=== PATIENT | female | born 2000 | race Caucasian/White ===

== ENCOUNTER → 2020-03-26 13:43 | Outpatient (BNVA) | payer BC, OTHER, SELFPAY | PROVIDERS: PCP Internal Medicine; Visit Provider Obstetrics & Gynecology | DX: Z30.46 Encounter for surveillance of implantable subdermal contraceptive (principal); Z87.891 Personal history of nicotine dependence | CPT/HCPCS: 11982; 81025 ==

== ENCOUNTER 2020-08-02 10:43 | Emergency (ER) | payer BC, OTHER, SELFPAY ==
--- NOTE | ~2020-08-02 | US_ITS ---
EXAMINATION: US OBSTETRICAL ULTRASOUND CLINICAL INFORMATION: Pelvic and back pain. Positive . Age 19. COMPARISON: None. LMP: Unknown. TECHNIQUE: Ultrasound of the maternal pelvis is performed using transabdominal and transvaginal transducers. Transvaginal imaging is performed due to inadequate visualization transabdominally. M-mode Doppler is also performed. FINDINGS: There is a single intrauterine gestational sac with visible yolk sac, embryo/fetus, and cardiac activity. There is no significant subchorionic hemorrhage or hematoma. HR: 109 beats per minute. CRL (crown rump length): 0.4 cm (6 weeks 1 day +/- 4 days). LOTUS (estimated date of delivery): 03/27/2021 +/- 4 days. MATERNAL ADNEXA: The right maternal ovary measures 2.6 x 1.8 x 2.3 cm. The left maternal ovary measures 2.5 x 2.1 x 2.5 cm. There is small left paraovarian cyst measuring 1.2 cm. No peripheral or internal color flow. No significant adnexal mass. No pelvic ascites. US/US OB transvaginal IMPRESSION: 1. Single intrauterine gestation with ultrasound gestational age of 6 weeks 1 day +/- 4 days. 2. Estimated date of delivery is 03/27/2021 +/- 4 days. 3. Small left paraovarian cyst 1.2 cm. No significant adnexal mass or pelvic ascites.
--- NOTE | ~2020-08-02 | US_ITS ---
EXAMINATION: US OBSTETRICAL ULTRASOUND CLINICAL INFORMATION: Pelvic and back pain. Positive . Age 19. COMPARISON: None. LMP: Unknown. TECHNIQUE: Ultrasound of the maternal pelvis is performed using transabdominal and transvaginal transducers. Transvaginal imaging is performed due to inadequate visualization transabdominally. M-mode Doppler is also performed. FINDINGS: There is a single intrauterine gestational sac with visible yolk sac, embryo/fetus, and cardiac activity. There is no significant subchorionic hemorrhage or hematoma. HR: 109 beats per minute. CRL (crown rump length): 0.4 cm (6 weeks 1 day +/- 4 days). LOTUS (estimated date of delivery): 03/27/2021 +/- 4 days. MATERNAL ADNEXA: The right maternal ovary measures 2.6 x 1.8 x 2.3 cm. The left maternal ovary measures 2.5 x 2.1 x 2.5 cm. There is small left paraovarian cyst measuring 1.2 cm. No peripheral or internal color flow. No significant adnexal mass. No pelvic ascites. US/US OB <= 14 weeks fetus IMPRESSION: 1. Single intrauterine gestation with ultrasound gestational age of 6 weeks 1 day +/- 4 days. 2. Estimated date of delivery is 03/27/2021 +/- 4 days. 3. Small left paraovarian cyst 1.2 cm. No significant adnexal mass or pelvic ascites.
[2020-08-02 11:36] VITALS: BP 133/73; PULSE 100; RESP 18; TEMP 36.1; O2SAT 98; BMI 42.3
--- NOTE | 2020-08-02 11:38 | ED_ITS ---
HPI - Female Genitourinary General Chief complaint: Urogenital-Female Stated complaint: ?uti Time Seen by Provider: 08/02/20 10:46 Source: patient Mode of arrival: ambulatory Limitations: no limitations History of Present Illness HPI Narrative: 19 yo female coming from with complaints of waking with bilateral lower back pain, nausea/vomiting x3, hematuria, urinary frequency/dysuria, suprapubic discomfort. No fevers, chills, vaginal discharge, rashes or lesion. Last menstrual cycle 6 weeks ago. . Is not currently on contraception but does use condoms. Denies vaginal bleeding. Related Data Home Medications Medication Instructions Recorded Confirmed benzoyl peroxide 10 % topical gel 1 appl TOPICAL BID 08/02/20 clindamycin phosphate 1 % topical 1 appl TOPICAL BID 08/02/20 gel Previous Rx's Medication Instructions Recorded norgestimate 0.25 mg-ethinyl 1 tab PO DAILY #84 tab 03/26/20 estradiol 35 mcg tablet nitrofurantoin 100 mg PO Q12H 7 Days #14 cap 06/06/20 monohydrate/macrocrystals 100 mg capsule cefpodoxime 100 mg PO BID #14 tab 08/02/20 prenat.vits,susan,[id number] 1 tab PO BEDTIME #30 tab 08/02/20 Allergies Allergy/AdvReac Type Severity Reaction Status Date / Time seasonal Allergy Intermediate Itchy Eyes Uncoded 08/02/20 09:21 Review of Systems Review of Systems: Yes all other systems are reviewed and are negative Constitutional: Constitutional: Reports no additional constitutional complaints, Denies body ache(s), Denies chills, Denies fever(s), Denies headache(s) and Denies weakness Eyes: Eyes: Reports no additional eye complaints and Denies change in vision ENT: Reports system reviewed and no additional complaints, except as documented, Denies dizziness, Denies headache(s), Denies nasal congestion, Denies nasal discharge and Denies neck pain Cardiovascular: Cardiovascular: Reports no additional cardiovascular complaints, Denies chest pain, Denies leg edema and Denies dyspnea Respiratory: Respiratory: Reports no additional respiratory complaints, Denies cough and Denies dyspnea Gastrointestinal: Gastrointestinal: Reports no additional gastrointestinal complaints, Denies abdominal pain, Denies diarrhea, Reports nausea and Reports vomiting Genitourinary: Genitourinary: Reports no additional female genitourinary complaints, Reports hematuria, Reports dysuria, Reports flank pain, Denies urinary incontinence, Denies urinary hesitancy, Denies urinary urgency, Denies vaginal discharge, Denies vaginal dryness, Denies vaginal odor and Denies vaginal pruritus Musculoskeletal: Musculoskeletal: Reports no additional musculoskeletal complaints, Reports back pain, Denies arthralgias, Denies joint swelling, Denies neck pain, Denies numbness and Denies tingling Integumentary/Breasts: Skin/Breast: Reports system reviewed and no additional complaints, except as docu and Denies rash Neurologic: Reports system reviewed and no additional complaints, except as documented, Denies Abnormal speech present, Denies dizziness, Denies headache(s), Denies numbness, Denies tingling and Denies weakness PMFSH Past Medical History Attestation statement: The following information was validated with the patient. Source: old records reviewed and nursing notes reviewed Surgical History Hx of section Family History Family History Maternal Grandmother HTN (hypertension) Maternal Grandfather Diabetes Maternal Grandfather Diabetes Social History Social History Alcohol intake: current Smoking Status: Former smoker Advance Directives: No Advance Directives Information Provided: No Physical Exam Vital Signs: Vital Signs: Last Vital Signs Temp 97.0 F 08/02/20 11:36 Pulse 100 08/02/20 11:36 Resp 18 08/02/20 11:36 BP 133/73 08/02/20 11:36 Pulse Ox 98 08/02/20 11:36 Body Mass Index 42.3 Const: General: cooperative, healthy appearing, comfortable and no acute distress Orientation/consciousness: patient oriented x3 Limitations: no limitations HENMT: Head: Yes normal to inspection Ears: hearing grossly normal bilaterally General nose exam: Normal external nose present Face and sinus: Yes normal facial exam Mouth: Normal oral and palatal mucosa present Throat: Yes posterior oropharynx normal Eyes: General: appearance normal, both eyes and all related structures Pupils: Equal, round and reactive pupils present Neck: Neck: Yes normal visual inspection Chest: Chest palpation & inspection: normal inspection of the chest Resp: Effort & Inspection: normal respiratory effort Auscultation: clear to auscultation bilaterally Cardio: Rate: regular rate Rhythm: regular rhythm Peripheral pulses: Peripheral pulses 2+ throughout GI: Other: Mild suprapubic discomfort. No rebound or guarding. Inspection: Yes normal to inspection Palpation (GI): Soft to palpation and nontender Auscultation: normal bowel sounds : General: Yes no CVA tenderness Back/Spine/Pelvis: Other: No CVA tenderness. There is reports of lower lumbar soft tissue tenderness with no midline tenderness, step-offs or deformities. Back: no CVA tenderness Thoracic/Lumbar Spine: thoracic and lumbar spine normal to inspection Skin: General skin exam: no rashes or lesions noted Neuro: General: patient oriented x3, no focal motor deficits and normal sensation to monofilament Cranial nerves: Yes Equal, round and reactive pupils present Cognition (Neuro): normal cognition Speech: No Abnormal speech present Gait exam (Neuro): Normal gait present Motor exam (neuro): 5/5 motor strength present throughout Extrem: General: Yes normal to inspection Course Course Course Narrative: 19-year-old female here with complaints of lower back pain, hematuria, dysuria, frequency, nausea, vomiting times 24 hours. Patient also she did have a UTI 1 month ago and completed a course of antibiotics but it has never had improvement of symptoms. Patient's last menstrual period was 6 weeks ago and she is sexually active but tells me she uses condoms all the time. No fevers, chills. The abdomen is soft with some mild tenderness over the suprapubic area. There is no CVA tenderness on exam. 1230-UA shows 3+ blood with UTI. On exam the urine is not grossly bloody. No CVAT on exam so low concern for pyelo. Urine is positive. Will need labs include a beta quant, Rh and ultrasound. 1600-Quant sufficient. US shows 1. Single intrauterine gestation with ultrasound gestational age of 6 weeks 1 day +/- 4 days. 2. Estimated date of delivery is 03/27/2021 +/- 4 days. 3. Small left paraovarian cyst 1.2 cm. No significant adnexal mass or pelvic ascites. Pelvic exam shows NO vaginal bleeding. STI testing sent although patient tells m she is not concerned. Will discharge home with precautions, antibiotic treatment for cystitis. Reviewed worrisome signs/symptoms with patient and when to return to ED. Comfortable with discharge home. MDM - Female Genitourinary Medical Records Attestation: I reviewed the patient's medical records. Lab Data Attestation: I reviewed the patient's lab results. Result diagrams: 08/02/20 13:20 08/02/20 13:21 Labs: Lab Results 08/02/20 08/02/20 08/02/20 Range/Units 12:03 12:03 13:20 WBC 14.9 H (4.8-10.8) X10*3/uL RBC 5.12 (4.20-5.50) X10*6/uL Hgb 11.8 L (12.0-16.0) g/dl Hct 37.6 (37-47) % MCV 73.4 L (80-98) fL MCH 23.0 L (27.0-33.0) pg MCHC 31.4 (31.0-35.0) g/dl RDW 16.0 (11.0-16.0) % Plt Count 432 H (160-400) X10*3/uL MPV 9.2 L (9.4-12.3) fL Immature Gran % (Auto) 0.4 (0.0-0.4) % Neut % (Auto) 76.4 H (45-73) % Lymph % (Auto) 16.4 L (20-40) % [place] % (Auto) 6.3 (2-11) % Eos % (Auto) 0.3 (0-4) % Baso % (Auto) 0.2 (0-2) % Lymph # (Auto) 2.5 (1.2-4.9) X10*3/uL [place] # (Auto) 0.9 (0.1-1.2) X10*3/uL Eos # (Auto) 0.0 (0.0-0.4) X10*3/uL Baso # (Auto) 0.0 (0.0-0.2) X10*3/uL Abs Immat Gran (auto) 0.06 H (0.00-0.03) X10*3/uL Absolute Neuts (auto) 11.4 H (2.0-8.3) X10*3/uL Absolute Nucleated RBC 0.000 (0.0-0.012) X10*3/uL Nucleated RBC % (auto) 0.0 (0.0-0.2) /100WBC PT (10.8-13.0) SEC INR (0.9-1.1) Sodium (135-145) mmol/L Potassium (3.3-5.1) mmol/L Chloride (96-108) mmol/L Carbon Dioxide (22-29) mmol/L Anion Gap (12-20) BUN (9-16) mg/dL Creatinine (0.5-1.4) mg/dL Estim Creat Clear Calc Estimated GFR Random Glucose (60-115) mg/dL Calcium (8.4-10.2) mg/dL Beta HCG, Quant mIU/mL Urine Color YELLOW Urine Appearance HAZY Urine pH 6.0 (5.0-8.0) Ur Specific [place] >= 1.030 H (1.005-1.025) Urine Protein 1+ H (NEG-TRACE) MG/DL Urine Glucose (UA) NEG (NEG) MG/DL Urine Ketones 15 (NEG) MG/DL Urine Blood 3+ H (NEG) Urine Nitrite NEG (NEG) Ur Leukocyte Esterase 1+ H (NEG) Urine RBC 76-150 H (0) /HPF Urine WBC 76-150 H (0-4) /HPF Ur Squamous Epith Cells TRACE /LPF Urine Bacteria 1+ /LPF Urine Yeast 2+ /HPF Urine Test POSITIVE H (NEGATIVE) Blood Type 08/02/20 08/02/20 08/02/20 Range/Units 13:20 13:20 13:21 WBC (4.8-10.8) X10*3/uL RBC (4.20-5.50) X10*6/uL Hgb (12.0-16.0) g/dl Hct (37-47) % MCV (80-98) fL MCH (27.0-33.0) pg MCHC (31.0-35.0) g/dl RDW (11.0-16.0) % Plt Count (160-400) X10*3/uL MPV (9.4-12.3) fL Immature Gran % (Auto) (0.0-0.4) % Neut % (Auto) (45-73) % Lymph % (Auto) (20-40) % [place] % (Auto) (2-11) % Eos % (Auto) (0-4) % Baso % (Auto) (0-2) % Lymph # (Auto) (1.2-4.9) X10*3/uL [place] # (Auto) (0.1-1.2) X10*3/uL Eos # (Auto) (0.0-0.4) X10*3/uL Baso # (Auto) (0.0-0.2) X10*3/uL Abs Immat Gran (auto) (0.00-0.03) X10*3/uL Absolute Neuts (auto) (2.0-8.3) X10*3/uL Absolute Nucleated RBC (0.0-0.012) X10*3/uL Nucleated RBC % (auto) (0.0-0.2) /100WBC PT 13.5 H (10.8-13.0) SEC INR 1.1 (0.9-1.1) Sodium 138 (135-145) mmol/L Potassium 4.0 (3.3-5.1) mmol/L Chloride 105 (96-108) mmol/L Carbon Dioxide 22 (22-29) mmol/L Anion Gap 15 (12-20) BUN 6 L (9-16) mg/dL Creatinine 0.55 (0.5-1.4) mg/dL Estim Creat Clear Calc 170.3 Estimated GFR > 60 Random Glucose 81 (60-115) mg/dL Calcium 9.3 (8.4-10.2) mg/dL Beta HCG, Quant 65682 mIU/mL Urine Color Urine Appearance Urine pH (5.0-8.0) Ur Specific [place] (1.005-1.025) Urine Protein (NEG-TRACE) MG/DL Urine Glucose (UA) (NEG) MG/DL Urine Ketones (NEG) MG/DL Urine Blood (NEG) Urine Nitrite (NEG) Ur Leukocyte Esterase (NEG) Urine RBC (0) /HPF Urine WBC (0-4) /HPF Ur Squamous Epith Cells /LPF Urine Bacteria /LPF Urine Yeast /HPF Urine Test (NEGATIVE) Blood Type A Positive Imaging Data Pelvic US: Attestation: I personally reviewed and interpreted this imaging study as follows: Radiologist's impression: IMPRESSION: 1. Single intrauterine gestation with ultrasound gestational age of 6 weeks 1 day +/- 4 days. 2. Estimated date of delivery is 03/27/2021 +/- 4 days. 3. Small left paraovarian cyst 1.2 cm. No significant adnexal mass or pelvic ascites. Discharge Plan Discharge Clinical Impression: Urinary tract infection Qualifiers: Urinary tract infection type: acute cystitis Hematuria presence: with hematuria Qualified Code(s): N30.01 - Acute cystitis with hematuria Qualifiers: Weeks of gestation: less than 8 weeks Qualified Code(s): Z3A.01 - Less than 8 weeks gestation of Patient Disposition: Home, Self-Care Instructions: Urinary Tract Infection in (ED), First Trimester (ED) Additional Instructions: Increase fluids, rest tylenol only for pain Prescriptions: New cefpodoxime 100 mg tablet 100 mg PO BID Qty: 14 RF: 0 prenat.vits,susan,uid-jems-ysrhi Tablet 1 tab PO BEDTIME Qty: 30 RF: 0 No Action nitrofurantoin monohyd/m-cryst [Macrobid] 100 mg capsule 100 mg PO Q12H 7 Days Qty: 14 RF: 0 benzoyl peroxide 10 % gel 1 appl topical BID RF: 0 clindamycin phosphate 1 % gel 1 appl topical BID RF: 0 norgestimate-ethinyl estradiol [Sprintec (28)] 0.25-35 mg-mcg tablet 1 tab PO DAILY Qty: 84 RF: 3 Referrals: Matthew Nice MD [Physician] - 2 days Interventions: ED Discharge Assessment Last Done: 08/02/20 16:11 Discharge Date/Time: 08/02/20 16:11
[2020-08-02 12:19] LABS: UPreg QC Valid YES; Urine Pregnancy POSITIVE (NEGATIVE)
[2020-08-02 12:22] LABS: Glucose Urine UA NEG (NEG); Leukocyte Esterase Urine 1+ (NEG); Nitrite Urine NEG (NEG); Specific Gravity - Urine >= 1.030 (1.005-1.025); UACC Culture Trigger YES; Urine Blood 3+ (NEG); Urine Ketones 15 MG/DL (NEG); Urine Protein 1+ MG/DL (NEG-TRACE)
[2020-08-02 12:26] LABS: Appearance Urine HAZY; Color Urine YELLOW
[2020-08-02 13:02] LABS: Bacteria Urine 1+ /LPF; Squamous Epithelial Cell Urine TRACE /LPF
[2020-08-02 13:31] LABS: MANUAL DIFF FLAG NO
[2020-08-02 13:35] LABS: Basophils Percent Auto 0.2 % (0-2); Eosinophils Percent Auto 0.3 % (0-4); Hematocrit 37.6 % (37-47); Hemoglobin 11.8 g/dl (12.0-16.0); Imm Gran Abs Auto 0.06 X10*3/uL (0.00-0.03); Imm Gran Pct Auto 0.4 % (0.0-0.4); Lymphocytes Absolute Auto 2.5 X10*3/uL (1.2-4.9); Lymphocytes Percent Auto 16.4 % (20-40); Mean Corpuscular HGB Conc 31.4 g/dl (31.0-35.0); Mean Corpuscular Volume 73.4 fL (80-98); Mean Platelet Volume 9.2 fL (9.4-12.3); Monocytes Absolute Auto 0.9 X10*3/uL (0.1-1.2); Monocytes Percent Auto 6.3 % (2-11); Neutrophils Absolute Auto 11.4 X10*3/uL (2.0-8.3); Neutrophils Percent Auto 76.4 % (45-73); Platelet Count 432 X10*3/uL (160-400); Red Blood Count 5.12 X10*6/uL (4.20-5.50); White Blood Count 14.9 X10*3/uL (4.8-10.8)
[2020-08-02 13:41] LABS: INTERNATIONAL NORM RATIO 1.1 (0.9-1.1); Prothrombin Time 13.5 SEC (10.8-13.0)
[2020-08-02 13:55] LABS: Anion Gap 15 (12-20); Blood Urea Nitrogen 6 mg/dL (9-16); Calcium 9.3 mg/dL (8.4-10.2); Carbon Dioxide 22 mmol/L (22-29); Chloride 105 mmol/L (96-108); Creatinine Clr Calc Pharmacy 170.3; Estimated Glomerular Filt Rate > 60; Glucose Random 81 mg/dL (60-115); Sodium 138 mmol/L (135-145)
[2020-08-02 14:31] LABS: HCG Quantitative 16040 mIU/mL
--- NOTE | 2020-08-02 16:03 | PC.NURSE ---
ASSISTED RISK CONTROL DIRECTOR WITH PELVIC EXAM. PT TOLERATED PROCEDURE WELL.
[2020-08-03 06:32] LABS: CT PCR NOT DETECTED (Not Detect.); NG PCR NOT DETECTED (Not Detect.)
[2020-08-03 08:51] LABS: BV Int Neg Control Negative (Negative); BV Int Pos Control Positive (Positive)
== END 2020-08-02 16:11 | disposition home or self-care (01) ==
PROVIDERS: Nurse Practitioner Family; Emergency Provider Emergency Medicine; PCP Internal Medicine
DX: O23.11 Infections of bladder in pregnancy, first trimester (principal); N30.01 Acute cystitis with hematuria; O34.81 Maternal care for other abnormalities of pelvic organs, first trimester; N83.202 Unspecified ovarian cyst, left side; Z3A.01 Less than 8 weeks gestation of pregnancy
CPT/HCPCS: 36415; 76801; 76817; 80048; 81001; 81003; 81025; 84702; 85025; 85610; 86900; 86901; 87086; 87480; 87491; 87510; 87591; 87660; 99283; 99284

== ENCOUNTER → 2020-08-15 14:41 | Outpatient (BNVA) | payer BC, OTHER, SELFPAY | PROVIDERS: PCP Internal Medicine; Visit Provider Advanced Practice Midwife | DX: Z34.90 Encounter for supervision of normal pregnancy, unspecified, unspecified trimester (principal) | CPT/HCPCS: 81025; 99212 ==

== ENCOUNTER 2020-08-30 13:59 | Outpatient (REF) | payer BC, SELFPAY ==
[2020-08-30 18:16] LABS: Hematocrit 34.3 % (37-47); Hemoglobin 10.8 g/dl (12.0-16.0); Mean Corpuscular HGB Conc 31.5 g/dl (31.0-35.0); Mean Corpuscular Hemoglobin 23.4 pg (27.0-33.0); Mean Corpuscular Volume 74.4 fL (80-98); Mean Platelet Volume 9.6 fL (9.4-12.3); Platelet Count 387 X10*3/uL (160-400); Red Blood Count 4.61 X10*6/uL (4.20-5.50); Red Cell Distribution Width 15.3 % (11.0-16.0); White Blood Count 8.9 X10*3/uL (4.8-10.8)
[2020-08-30 18:17] LABS: Glucose 1 Hour PP 50gm Dose 107 mg/dL (60-140)
[2020-08-30 18:28] LABS: Amphetamine Screen Urine Not Detected (Not Detect); Barbiturates, Urine Not Detected (Not Detect); Benzodiazepines Screen Urine Not Detected (Not Detect); Cannabinoid Screen Urine Not Detected (Not Detect); Cocaine Screen Urine Not Detected (Not Detect); Opiate Screen Urine Not Detected (Not Detect); Phencyclidine Screen Urine Not Detected (Not Detect)
[2020-08-31 04:20] LABS: Syphilis Screen Nonreactive (Nonreactive)
[2020-08-31 04:23] LABS: HBsAGNum1 0.35 S/CO (0.00-0.99); Hepatitis B Surface Antigen Negative (Negative); ~HepC Num1 0.05 S/CO (0.00-0.79); ~Hepatitis C Antibody Nonreactive (Nonreactive)
[2020-08-31 04:27] LABS: HIV AB/AG Nonreactive (Nonreactive); HIV Num 1 0.07 S/CO (0.00-0.99)
[2020-08-31 13:25] LABS: Rubella IgG Antibody 2.06 Index; Varicella IgG Antibody <135.00 index
[2020-08-31 14:37] LABS: Hematocrit 34.2 % (35.0-45.0); Hemoglobin 10.9 g/dL (11.7-15.5); MCH 23.9 pg (27.0-33.0); RBC 4.56 Million/uL (3.80-5.10); RDW 14.7 % (11.0-15.0)
== END 2020-08-30 14:00 | disposition home or self-care (01) ==
LOC: HO.LAB 13:59
PROVIDERS: Absent Provider Obstetrics & Gynecology; PCP Internal Medicine; Visit Provider Advanced Practice Midwife
DX: O99.211 Obesity complicating pregnancy, first trimester (principal); O26.891 Other specified pregnancy related conditions, first trimester; G43.909 Migraine, unspecified, not intractable, without status migrainosus; E66.9 Obesity, unspecified; Z3A.10 10 weeks gestation of pregnancy; Z79.899 Other long term (current) drug therapy
CPT/HCPCS: 80307; 83020; 85014; 85018; 85027; 85041; 86762; 86780; 86787; 86803; 86850; 86900; 86901; 87086; 87340; 87389; 99212

== ENCOUNTER 2020-09-07 14:11 | Outpatient (REF) | payer OTHER, SELFPAY ==
--- NOTE | ~2020-09-07 | US_ITS ---
EXAMINATION: OBSTETRICAL ULTRASOUND, FIRST TRIMESTER HISTORY: 19-year-old at 11.2 weeks of gestation NT screening COMPARISON: 08/02/2020 TECHNIQUE: Real time transabdominal imaging with color and M-mode Doppler. FINDINGS: A single, live IUP CRL of 51.6 mm c/w 11.6wks is noted. Heart Rate: 156 beats per minute. Normal yolk sac seen. NT was 0.61.mm. NB Present The embryo appears sonographically wnl for this GA. Both maternal ovaries are seen and appear normal. GESTATIONAL AGE: 1. Established GA: 11.2 wks 2. GA from [facility]: 11.6 wks ESTIMATED DATE OF DELIVERY: 1. Established LOTUS: 03/27/2021 2. LOTUS from [facility]: 03/23/2021 US/US OB 1T nuc measure IMPRESSION: 1. A single live IUP 2. Size equals dates 3. NT of 0.6 mm MFM Consultation: I reviewed the ultrasound findings along with significance of NT measurement. The NT of less than 3mm is generally reassuring. However, the sensitivity for T21 detection is only 60%. I reviewed the availability of serum aneuploidy screening which includes cell-free DNA and placental protein based tests. I discussed the sensitivity, false-positive rate, and other limitations associated with each test. I also reviewed the availability of invasive diagnostic tests that are associated small but definite risk of miscarriage. We also reviewed the differences between screening tests and diagnostic tests. After our discussion, she opted for the First trimester screening that is based on cell-free DNA or non-invasive testing (NIPT). The result will be faxed to your office in approximately 7 days. A follow up at 18 weeks for survey has been scheduled. Thank you very much for this referral. Total time 20 minutes. The time spent was devoted to counseling the patient about the disease and diagnosis, coordinating care including reviewing her records, pertinent lab data and studies, as well as discussing diagnostic evaluation and workup, plan therapeutic interventions and future disposition of care. This includes any additional research needed to obtain further information in formulating the plan of care of this patient. This note was generated with a voice recognition program. Please excuse any errors which may have been overlooked during my review of this note. Sometimes these errors may affect the content or meaning of a given sentence.
== END 2020-09-07 14:12 | disposition home or self-care (01) ==
LOC: HO.US 14:11
PROVIDERS: PCP Internal Medicine; Visit Provider Obstetrics & Gynecology
DX: Z36.82 Encounter for antenatal screening for nuchal translucency (principal)
CPT/HCPCS: 76813

== ENCOUNTER 2020-09-12 14:46 | Outpatient (REF) | payer BC, OTHER, SELFPAY ==
[2020-09-13 06:42] LABS: CT PCR NOT DETECTED (Not Detect.); NG PCR NOT DETECTED (Not Detect.)
[2020-09-13 08:39] LABS: BV Int Neg Control Negative (Negative); BV Int Pos Control Positive (Positive)
== END 2020-09-12 14:47 | disposition home or self-care (01) ==
LOC: HO.LAB 14:46
PROVIDERS: PCP Internal Medicine; Visit Provider Obstetrics & Gynecology
DX: O21.9 Vomiting of pregnancy, unspecified (principal); Z3A.12 12 weeks gestation of pregnancy
CPT/HCPCS: 87480; 87491; 87510; 87591; 87660; 88142; 99212

== ENCOUNTER → 2020-10-10 14:51 | Outpatient (BNVA) | payer BC, OTHER, SELFPAY | PROVIDERS: PCP Internal Medicine; Visit Provider Advanced Practice Midwife | DX: Z34.91 Encounter for supervision of normal pregnancy, unspecified, first trimester (principal); Z3A.16 16 weeks gestation of pregnancy | CPT/HCPCS: 81003; 99212 ==

== ENCOUNTER 2020-10-26 09:09 | Outpatient (REF) | payer BC, OTHER, SELFPAY ==
--- NOTE | ~2020-10-26 | US_ITS ---
EXAMINATION: US OBSTETRICAL CLINICAL INFORMATION: 19-year-old at the 18.2 weeks of gestation Suspected anomaly COMPARISON: 09/07/2020 TECHNIQUE: Real-time transabdominal ultrasound was performed using C1-5 megahertz transducer. FINDINGS: A single, active, fetus is seen in vertex presentation. The placenta is posterior without previa, and the amniotic fluid volume is wnl. MEASUREMENTS: 1. Biparietal Diameter: 4.2 cm; 18.5 wks 2. Occipital Frontal Diameter: 5.5 cm 3. Head Circumference: 15.6 cm; 18.4 wks 4. Abdominal Circumference: 12.8 cm; 18.3 wks 5. Femur Length: 2.7 cm; 18.1 wks 6. Humerus Length: 2.6 cm; 18.1 wks 7. Tibia Length: 2.3 cm; 18.3 wks 8. Ulna Length: 2.4 cm; 18.3 wks 9. Lateral ventricle: 0.5 cm 10. Cerebellum: 1.98 cm; 20.2 wks 11. Cisterna Magna: 0.3 cm 12. Nuchal Fold: 3.5 mm 13. Heart Rate: 149 beats per minute Rt ovary: normal Lt ovary: normal Cervical length 3.3 cm on T/A. GESTATIONAL AGE: 1. Established GA: 18.2 wks 2. GA from [facility]: 18.4 wks ESTIMATED DATE OF DELIVERY: 1. Established LOTUS: 03/27/2021 2. LOTUS from [facility]: 03/25/2021 ANATOMY: The visualized anatomy includes but not limited to: 1. Cranium: Normal 2. Intracranial anatomy: cavum septum pellucidi, lateral ventricles, choroid plexus, cerebellum, posterior fossa, third and fourth ventricles. 3. face: orbits, lip/palate, profile, nasal bone 4. Heart: four-chamber view of the heart, ventricular septum, foramen ovale, pulmonary vein, left and right outflow tracts, three-vessel view, 3 vessel trachea view, aortic and ductal arches, situs.. 5. Diaphragm: Normal 6. Abdominal wall: Normal 7. Cord Insertion: Normal 8. Spine: Cervical, thoracic, lumbar, sacral. 9. Stomach: Normal size and shape 10. Right Kidney: Normal 11. Left Kidney: Normal 12. 3 vessel cord: Normal 13. Upper extremity: Open hands, fifth digit. 14. Lower extremity: Tibia, fibula, bilateral feet. 15. Bladder: Normal 16. Genitalia: Male, patient aware US/US OB /maternal detail IMPRESSION: 1. Single, living, intrauterine with appropriate biometry. 2. Normal survey DISCUSSION: I reviewed today's ultrasound findings. We discussed the limitations of ultrasound in diagnosing aneuploidy and other congenital abnormalities. I reviewed the differences between screening test and diagnostic test. Amniocentesis was discussed and declined. She was informed that the baseline incidence of congenital abnormalities is approximately 3-5%. Not all these conditions are diagnosable in utero. RECOMMENDATIONS: Follow-up when necessary Thank you for allowing me to participate in her care. Total time 20 minutes. The time spent was devoted to counseling the patient about the disease and diagnosis, coordinating care including reviewing her records, pertinent lab data and studies, as well as discussing diagnostic evaluation and workup, plan therapeutic interventions and future disposition of care. This includes any additional research needed to obtain further information in formulating the plan of care of this patient. This note was generated with a voice recognition program. Please excuse any errors which may have been overlooked during my review of this note. Sometimes these errors may affect the content or meaning of a given sentence.
== END 2020-10-26 09:10 | disposition home or self-care (01) ==
LOC: HO.US 09:09
PROVIDERS: Visit Provider Obstetrics & Gynecology
DX: Z34.92 Encounter for supervision of normal pregnancy, unspecified, second trimester (principal); Z36.3 Encounter for antenatal screening for malformations
CPT/HCPCS: 76811; 76812

== ENCOUNTER 2023-01-02 09:24 | Emergency (ER) | payer OTHER, SELFPAY ==
[2023-01-02 09:27] VITALS: BP 150/90; PULSE 100; RESP 16; TEMP 36.7; O2SAT 99; BMI 44.3
[2023-01-02 10:48] VITALS: BP 129/70; PULSE 108; RESP 16; TEMP 36.9; O2SAT 98
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
[2023-01-02 11:09] VITALS: O2SAT 98
--- NOTE | 2023-01-02 11:13 | PC.NURSE ---
pt is alert and oriented, skin pwd, respirations even and unlabored, pt reports swollen tonsils/pain/fevers, tonsils are swollen and slightly red, pain 7/10, but speaking in clear full sentences and air way patent
[2023-01-02 11:18] LABS: IDNOW Serial# 08D9AD1C; Strep A Nucleic Acid Negative (Negative)
[2023-01-02 11:50] LABS: IDNOW Serial# 55D5AD1C; Influenza A Negative (Negative); Influenza B2 Negative (Negative)
[2023-01-02 11:51] LABS: COVID-19 Test Negative (Negative); IDNOW Serial# 6674DD1D
[2023-01-02 12:12] LABS: Monotest Negative (Negative)
== END 2023-01-02 12:37 | disposition home or self-care (01) ==
PROVIDERS: Registered Nurse Emergency; Emergency Provider Emergency Medicine Emergency Medical Services; PCP Internal Medicine
DX: J03.90 Acute tonsillitis, unspecified (principal); R50.9 Fever, unspecified; R11.2 Nausea with vomiting, unspecified; Z20.822 Contact with and (suspected) exposure to COVID-19; Z20.828 Contact with and (suspected) exposure to other viral communicable diseases; Z79.899 Other long term (current) drug therapy
CPT/HCPCS: 36415; 86308; 87502; 87635; 87651; 99283; 99284

== ENCOUNTER 2023-02-06 09:47 | Outpatient (AMB) | payer OTHER, SELFPAY ==
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
[2023-02-06 09:51] VITALS: BP 120/70; PULSE 85; O2SAT 97; BMI 43.8
== END 2023-02-06 10:36 | disposition home or self-care (01) ==
PROVIDERS: PCP Nurse Practitioner Family; Visit Provider Nurse Practitioner Family
DX: J03.91 Acute recurrent tonsillitis, unspecified (principal); F33.9 Major depressive disorder, recurrent, unspecified; F41.9 Anxiety disorder, unspecified
CPT/HCPCS: 96127; 99214

== ENCOUNTER 2023-03-03 08:00 | Outpatient (AMB) | payer OTHER, SELFPAY ==
[2023-03-03 08:17] VITALS: BP 120/78; PULSE 87; TEMP 36.6; O2SAT 100; BMI 43.2
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
== END 2023-03-03 08:36 | disposition home or self-care (01) ==
PROVIDERS: PCP Nurse Practitioner Family; Visit Provider Internal Medicine
DX: J03.91 Acute recurrent tonsillitis, unspecified (principal); J02.9 Acute pharyngitis, unspecified
CPT/HCPCS: 87880; 99213

== ENCOUNTER 2023-03-20 12:52 | Outpatient (AMB) | payer OTHER, SELFPAY ==
[2023-03-20 12:49] VITALS: BMI 43.4
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
== END 2023-03-20 13:14 | disposition home or self-care (01) ==
LOC: HO.HMGH 12:52
PROVIDERS: PCP Nurse Practitioner Family; Visit Provider Nurse Practitioner Family
DX: F41.9 Anxiety disorder, unspecified (principal); F32.A Depression, unspecified
CPT/HCPCS: 99213

== ENCOUNTER 2023-04-21 12:47 | Outpatient (REF) | payer OTHER, SELFPAY ==
[2023-04-22 04:10] LABS: HBsAGNum1 0.23 S/CO (0.00-0.99); Hepatitis B Surface Antigen Negative (Negative)
[2023-04-24 11:06] LABS: HBS Num1 28.43 mIU/mL (0-7.99); ~Hepatitis B Surface Antibody REACTIVE (Nonreactive)
== END 2023-04-21 12:48 | disposition home or self-care (01) ==
LOC: HO.LAB 12:47
PROVIDERS: PCP Internal Medicine; Visit Provider Internal Medicine
DX: Z01.84 Encounter for antibody response examination (principal)
CPT/HCPCS: 36415; 86706; 87340

== ENCOUNTER 2023-04-21 12:57 | Outpatient (AMB) | payer OTHER, SELFPAY ==
--- NOTE | 2023-04-21 13:19 | AM.OFFVISNUR ---
Intake Intake Visit Reasons: flu shot, TB screening Allergies honey Allergy (Severe, Verified 03/20/23 12:49) throat closes bee pollen Allergy (Intermediate, Verified 03/20/23 12:49) Anaphylaxis seasonal Allergy (Intermediate, Uncoded 03/03/23 08:26) Itchy Eyes Office Procedures Flu Questionnaire Does the patient have a severe egg allergy?: No Does the patient have severe life threatening allergies?: No Does the patient have a fever or illness today?: No Has the patient ever had Guillain-Ellsworth Syndrome?: No Has the patient ever had any past reaction to a flu shot?: Yes Comment: pt reports a previous reaction to the flu shot years ago but reports it's been given since without issues and pt requires this for school Office Meds tuberculin PPD 5 tub. unit/0.1 mL intradermal injection solution Performing Provider: Shwetha Dee MD Performing Location: [facility] Adult Primary [facility] Administered by: Yanet Smallwood RN on 04/21/23 13:19 Dose Route Admin Location Dispensed Lot Number Expiration Date 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 Job Placement Officer 0.5 mL IM Left Deltoid 0.5 mL [id number] 10/11/23 62923-229-70 Rever[employer] VIS Given Date VIS Provided VIS Publication Date 04/21/23 Single Vaccine 20 Eligibility Eligibility Date Funding Source Not VF Eligible 04/21/23 Private Coding Assessment & Plan Assessment & Plan Orders: Orders AMB PPD Planted Today Z11.1 - Encounter for screening for respiratory tuberculosis Influenza [id number] Immunization Today Z23 - Encounter for immunization
== END 2023-04-21 13:21 | disposition home or self-care (01) ==
PROVIDERS: PCP Nurse Practitioner Family; Visit Provider Internal Medicine
DX: Z11.1 Encounter for screening for respiratory tuberculosis (principal); Z23 Encounter for immunization
CPT/HCPCS: 86580; 90471; 90686

== ENCOUNTER 2023-04-29 15:05 | Outpatient (AMB) | payer OTHER, SELFPAY ==
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
== END 2023-04-29 17:07 | disposition home or self-care (01) ==
LOC: HO.HMGH 15:05
PROVIDERS: PCP Internal Medicine; Visit Provider Internal Medicine
DX: R51.9 Headache, unspecified (principal)
CPT/HCPCS: 99213

== ENCOUNTER 2023-05-01 09:31 | Outpatient (AMB) | payer OTHER, SELFPAY ==
--- NOTE | 2023-05-01 09:34 | AM.OFFVISNUR ---
Intake Intake Visit Reasons: 2nd ppd implant Allergies honey Allergy (Severe, Verified 04/29/23 15:01) throat closes bee pollen Allergy (Intermediate, Verified 04/29/23 15:01) Anaphylaxis seasonal Allergy (Intermediate, Uncoded 04/29/23 15:01) Itchy Eyes Office Meds tuberculin PPD 5 tub. 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
== END 2023-05-01 09:42 | disposition home or self-care (01) ==
PROVIDERS: PCP Internal Medicine; Visit Provider Internal Medicine
DX: Z11.1 Encounter for screening for respiratory tuberculosis (principal)
CPT/HCPCS: 86580

== ENCOUNTER 2023-06-03 14:17 | Outpatient (AMB) | payer OTHER, SELFPAY ==
[2023-06-03 14:23] VITALS: BP 130/100; PULSE 118; TEMP 36.7; O2SAT 98; BMI 41.2
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
== END 2023-06-03 15:49 | disposition home or self-care (01) ==
PROVIDERS: PCP Internal Medicine; Visit Provider Physician Assistant
DX: K12.1 Other forms of stomatitis (principal); Z20.2 Contact with and (suspected) exposure to infections with a predominantly sexual mode of transmission; Z32.02 Encounter for pregnancy test, result negative
CPT/HCPCS: 81003; 81025; 99213

== ENCOUNTER 2023-06-03 15:18 | Outpatient (REF) | payer OTHER, SELFPAY ==
[2023-06-03 18:10] LABS: CT PCR NOT DETECTED (Not Detect.); NG PCR NOT DETECTED (Not Detect.)
[2023-06-04 11:35] LABS: BV Int Neg Control Negative (Negative); BV Int Pos Control Positive (Positive)
[2023-06-04 11:49] LABS: RPR Rapid Plasma Reagin NON-REACTIVE (NON-REACTIVE)
== END 2023-06-03 15:19 | disposition home or self-care (01) ==
LOC: HO.HMGCLDS 15:18
PROVIDERS: Visit Provider Physician Assistant
DX: Z20.2 Contact with and (suspected) exposure to infections with a predominantly sexual mode of transmission (principal)
CPT/HCPCS: 0353U; 36415; 86592; 87480; 87510; 87660

== ENCOUNTER 2023-06-03 18:19 | Outpatient (REF) | payer OTHER, SELFPAY | END 2023-06-03 18:20 | disposition home or self-care (01) | LOC: HO.LAB 18:19 | PROVIDERS: Visit Provider Physician Assistant | DX: Z13.89 Encounter for screening for other disorder (principal) ==

== ENCOUNTER 2023-06-15 08:55 | Outpatient (AMB) | payer OTHER, SELFPAY ==
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
[2023-06-15 09:56] VITALS: BP 120/70; PULSE 92; TEMP 36.6; O2SAT 98; BMI 41.4
== END 2023-06-15 10:29 | disposition home or self-care (01) ==
PROVIDERS: PCP Internal Medicine; Visit Provider Internal Medicine
DX: J06.9 Acute upper respiratory infection, unspecified (principal); J02.9 Acute pharyngitis, unspecified
CPT/HCPCS: 87880; 99213

== ENCOUNTER 2023-06-24 13:03 | Outpatient (AMB) | payer OTHER, SELFPAY ==
[2023-06-24 13:12] VITALS: BP 136/74; PULSE 89; O2SAT 99; BMI 41.2
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
== END 2023-06-24 14:07 | disposition home or self-care (01) ==
PROVIDERS: PCP Nurse Practitioner Family; Visit Provider Internal Medicine
DX: Z00.00 Encounter for general adult medical examination without abnormal findings (principal); F33.9 Major depressive disorder, recurrent, unspecified; E66.01 Morbid (severe) obesity due to excess calories; Z68.41 Body mass index [BMI] 40.0-44.9, adult; G47.10 Hypersomnia, unspecified
CPT/HCPCS: 99395

== ENCOUNTER → 2023-08-04 08:11 | Outpatient (REF) | payer OTHER, SELFPAY ==
[2023-08-04 10:26] LABS: MANUAL DIFF FLAG NO
[2023-08-04 10:39] LABS: Basophils Percent Auto 0.4 % (0-2); Eosinophils Absolute Auto 0.1 X10*3/uL (0.0-0.4); Eosinophils Percent Auto 1.3 % (0-4); Hematocrit 41.5 % (37.0-47.0); Hemoglobin 13.5 g/dl (12.0-16.0); Imm Gran Abs Auto 0.01 X10*3/uL (0.00-0.03); Imm Gran Pct Auto 0.1 % (0.0-0.4); Immature Retic Fraction 17.3 % (3.0-15.9); Lymphocytes Absolute Auto 2.5 X10*3/uL (1.2-4.9); Lymphocytes Percent Auto 32.6 % (20-40); Mean Corpuscular HGB Conc 32.5 g/dl (31.0-35.0); Mean Corpuscular Hemoglobin 26.2 pg (27.0-33.0); Mean Corpuscular Volume 80.6 fL (80.0-98.0); Mean Platelet Volume 10.1 fL (9.4-12.3); Monocytes Absolute Auto 0.6 X10*3/uL (0.1-1.2); Monocytes Percent Auto 7.4 % (2-11); Neutrophils Absolute Auto 4.4 x10*3/uL (2.0-8.3); Neutrophils Percent Auto 58.2 % (45-73); Platelet Count 373 X10*3/uL (160-400); Red Blood Count 5.15 X10*6/uL (4.20-5.50); Red Cell Distribution Width 13.2 % (11.0-16.0); Retic HGB Equivalent 29.2 pg (30.0-35.0); Reticulocyte Percent 1.4 % (0.5-1.8); White Blood Count 7.6 X10*3/uL (4.8-10.8)
[2023-08-04 11:04] LABS: Estimated Average Glucose 105 mg/dL; Hemoglobin A1c % 5.3 % (<6.0)
[2023-08-04 11:50] LABS: Alanine Aminotransferase 35 U/L (0-31); Albumin Level 4.1 g/dL (3.5-5.0); Alkaline Phosphatase 87 U/L (39-117); Anion Gap 11 (12-20); Aspartate Amino Transferase 26 U/L (5-31); Bilirubin Total 0.2 mg/dL (0.0-1.0); Blood Urea Nitrogen 10 mg/dL (9-16); Calcium 9.2 mg/dL (8.4-10.2); Carbon Dioxide 25 mmol/L (22-29); Chloride 107 mmol/L (96-108); Cholesterol 182 mg/dL (<200); Estimated Glomerular Filt Rate > 60; Glucose Fasting 105 mg/dL (60-99); HDL Cholesterol 38 mg/dL (>40); Iron 24 mcg/dL (30-160); LDL Cholesterol Calculated 129 mg/dL (<100); Percent Iron Saturation 8 % (15-50); Potassium 3.9 mmol/L (3.3-5.1); Sodium 139 mmol/L (135-145); Total Iron Binding Capacity 311 mcg/dL (228-428); Total Protein 7.2 g/dL (6.5-8.0); Triglycerides 78 mg/dL (<150); Unsaturated Iron Binding 287 ug/dL
[2023-08-04 12:12] LABS: Ferritin 35 ng/mL (10-122); Free T4 (Free Thyroxine) 0.79 ng/dL (0.71-1.85); TSH reflex Free T4 1.84 uIU/mL (0.32-4.0); Thyroid Stimulating Hormone 1.84 uIU/mL (0.32-4.0)
[2023-08-04 12:17] LABS: Folate 6.2 ng/mL (> or = 4.0); Vitamin B12 549 pg/mL (200-900)
== END ==
LOC: HO.SL 08:11
PROVIDERS: PCP Internal Medicine; Visit Provider Internal Medicine
DX: E66.01 Morbid (severe) obesity due to excess calories (principal); I10 Essential (primary) hypertension; G47.10 Hypersomnia, unspecified; R06.83 Snoring; Z13.0 Encounter for screening for diseases of the blood and blood-forming organs and certain disorders involving the immune mechanism; Z13.220 Encounter for screening for lipoid disorders; Z13.29 Encounter for screening for other suspected endocrine disorder
CPT/HCPCS: 36415; 80053; 80061; 82306; 82607; 82728; 82746; 83036; 83540; 84439; 84443; 85025; 85045; 95806

== ENCOUNTER → 2023-08-04 10:39 | Outpatient (BNV) | payer OTHER, SELFPAY | PROVIDERS: PCP Internal Medicine; Visit Provider Internal Medicine | DX: R06.83 Snoring (principal); R40.0 Somnolence | CPT/HCPCS: 95806 ==

== ENCOUNTER → 2023-12-06 11:42 | Outpatient (BNV) | payer OTHER, SELFPAY ==
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
== END ==
PROVIDERS: PCP Internal Medicine; Visit Provider Internal Medicine
DX: J03.91 Acute recurrent tonsillitis, unspecified (principal); F33.9 Major depressive disorder, recurrent, unspecified
CPT/HCPCS: 99213

== ENCOUNTER 2024-07-06 10:12 | Outpatient (REF) | payer OTHER, SELFPAY | END 2024-07-06 10:13 | disposition home or self-care (01) | LOC: HO.LAB 10:12 | PROVIDERS: PCP Internal Medicine | DX: F33.9 Major depressive disorder, recurrent, unspecified (principal); F41.9 Anxiety disorder, unspecified; Z79.899 Other long term (current) drug therapy | CPT/HCPCS: 99212 ==

== ENCOUNTER 2024-07-06 10:12 | Outpatient (AMB) | payer OTHER, SELFPAY ==
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
[2024-07-06 10:32] VITALS: BP 120/88; PULSE 86; TEMP 36.3; O2SAT 98; BMI 41.6
== END 2024-07-06 11:53 | disposition home or self-care (01) ==
LOC: HO.HMCH 10:13
PROVIDERS: PCP Internal Medicine
DX: F33.9 Major depressive disorder, recurrent, unspecified (principal); Z11.3 Encounter for screening for infections with a predominantly sexual mode of transmission

== ENCOUNTER 2024-08-03 09:41 | Outpatient (AMB) | payer OTHER, SELFPAY ==
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
== END 2024-08-03 10:29 | disposition home or self-care (01) ==
LOC: HO.HMCH 09:41
PROVIDERS: PCP Internal Medicine
DX: F33.9 Major depressive disorder, recurrent, unspecified (principal)

== ENCOUNTER → 2024-08-03 09:41 | Outpatient (BNVA) | payer OTHER, SELFPAY | PROVIDERS: PCP Internal Medicine ==

== ENCOUNTER 2024-09-02 10:41 | Outpatient (AMB) | payer OTHER, SELFPAY ==
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
== END 2024-09-02 11:10 | disposition home or self-care (01) ==
LOC: HO.HMCH 10:41
PROVIDERS: PCP Internal Medicine
DX: G43.909 Migraine, unspecified, not intractable, without status migrainosus (principal); F33.9 Major depressive disorder, recurrent, unspecified; E66.01 Morbid (severe) obesity due to excess calories; K21.9 Gastro-esophageal reflux disease without esophagitis

== ENCOUNTER → 2024-09-02 10:41 | Outpatient (BNVA) | payer OTHER, SELFPAY | PROVIDERS: PCP Internal Medicine | DX: Z13.89 Encounter for screening for other disorder (principal) ==

== ENCOUNTER 2024-10-05 11:25 | Outpatient (AMB) | payer OTHER, SELFPAY ==
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
[2024-10-05 11:28] VITALS: BP 130/72; PULSE 110; O2SAT 98; BMI 41.6
== END 2024-10-05 12:38 | disposition home or self-care (01) ==
LOC: HO.HMCH 11:26
PROVIDERS: PCP Internal Medicine; Visit Provider Internal Medicine
DX: Z00.00 Encounter for general adult medical examination without abnormal findings (principal); R73.02 Impaired glucose tolerance (oral); E66.01 Morbid (severe) obesity due to excess calories; Z68.41 Body mass index [BMI] 40.0-44.9, adult; G43.909 Migraine, unspecified, not intractable, without status migrainosus; K21.9 Gastro-esophageal reflux disease without esophagitis; F33.9 Major depressive disorder, recurrent, unspecified; H53.9 Unspecified visual disturbance; Z11.3 Encounter for screening for infections with a predominantly sexual mode of transmission; E65 Localized adiposity

== ENCOUNTER → 2024-10-05 11:25 | Outpatient (BNVA) | payer OTHER, SELFPAY | PROVIDERS: PCP Internal Medicine; Visit Provider Internal Medicine | DX: Z00.00 Encounter for general adult medical examination without abnormal findings (principal); R73.02 Impaired glucose tolerance (oral); G43.909 Migraine, unspecified, not intractable, without status migrainosus; K21.9 Gastro-esophageal reflux disease without esophagitis; E66.01 Morbid (severe) obesity due to excess calories; F33.9 Major depressive disorder, recurrent, unspecified; H53.9 Unspecified visual disturbance; E65 Localized adiposity; Z68.41 Body mass index [BMI] 40.0-44.9, adult | CPT/HCPCS: 99395 ==

== ENCOUNTER 2024-11-28 09:16 | Outpatient (REF) | payer OTHER, SELFPAY ==
[2024-11-28 09:35] LABS: MANUAL DIFF FLAG NO
[2024-11-28 10:13] LABS: Hematocrit 40.9 % (37.0-47.0); Hemoglobin 13.5 g/dl (12.0-16.0); Imm Gran Abs Auto 0.03 X10*3/uL (0.00-0.03); Imm Gran Pct Auto 0.3 % (0.0-0.4); Lymphocytes Absolute Auto 2.5 X10*3/uL (1.2-4.9); Mean Corpuscular HGB Conc 33.0 g/dl (31.0-35.0); Mean Corpuscular Hemoglobin 27.1 pg (27.0-33.0); Mean Corpuscular Volume 82.0 fL (80.0-98.0); NRBC Abs Auto 0.000 X10*3/uL (0.0-0.012); NRBC Pct Auto 0.0 /100WBC (0.0-0.2); Platelet Count 347 X10*3/uL (160-400); Red Blood Count 4.99 X10*6/uL (4.20-5.50); Reticulocytes Absolute 0.116 X10*6/uL (0.026-0.095); White Blood Count 9.1 X10*3/uL (4.8-10.8)
[2024-11-28 10:18] LABS: Hemoglobin A1C 119.0920 umol/L; Total Hemoglobin (HGBA1C) 3515.6819 umol/L
[2024-11-28 11:25] LABS: Syphilis Screen Nonreactive (Nonreactive)
[2024-11-28 11:29] LABS: HBS Num1 6.71 mIU/mL (0-7.99); HBc Num1 0.06 S/CO (0.00-0.79); HBsAGNum1 0.42 S/CO (0.00-0.99); Hepatitis B Surface Antigen Negative (Negative); ~HepC Num1 0.21 S/CO (0.00-0.79); ~Hepatitis B Surface Antibody NONREACTIVE (Nonreactive); ~Hepatitis C Antibody Nonreactive (Nonreactive)
[2024-11-28 11:31] LABS: Folate 8.3 ng/mL (> or = 4.0); Vitamin B12 421 pg/mL (200-900)
[2024-11-28 12:04] LABS: Alanine Aminotransferase 59 U/L (0-31); Albumin Level 4.2 g/dL (3.5-5.0); Alkaline Phosphatase 90 U/L (39-117); Anion Gap 13 (12-20); Aspartate Amino Transferase 44 U/L (5-31); Blood Urea Nitrogen 7 mg/dL (9-16); Calcium 9.3 mg/dL (8.4-10.2); Carbon Dioxide 26 mmol/L (22-29); Chloride 106 mmol/L (96-108); Cholesterol 205 mg/dL (<200); Estimated Glomerular Filt Rate > 60; Ferritin 60 ng/mL (10-122); Free T4 (Free Thyroxine) 0.89 ng/dL (0.71-1.85); HDL Cholesterol 44 mg/dL (>40); Iron 39 mcg/dL (30-160); Percent Iron Saturation 13 % (15-50); Potassium 3.9 mmol/L (3.3-5.1); Sodium 141 mmol/L (135-145); Thyroid Stimulating Hormone 2.55 uIU/mL (0.32-4.0); Total Iron Binding Capacity 290 mcg/dL (228-428); Total Protein 7.0 g/dL (6.5-8.0); Triglycerides 117 mg/dL (<150); Unsaturated Iron Binding 251 ug/dL
[2024-11-28 13:04] LABS: CT PCR Urine NOT DETECTED (Not Detect.); NG PCR Urine NOT DETECTED (Not Detect.)
== END 2024-11-28 09:17 | disposition home or self-care (01) ==
LOC: HO.LAB 09:16
PROVIDERS: PCP Internal Medicine; Visit Provider Internal Medicine
DX: Z11.3 Encounter for screening for infections with a predominantly sexual mode of transmission (principal); Z11.8 Encounter for screening for other infectious and parasitic diseases; Z11.59 Encounter for screening for other viral diseases; K21.9 Gastro-esophageal reflux disease without esophagitis; R79.89 Other specified abnormal findings of blood chemistry; E78.00 Pure hypercholesterolemia, unspecified
CPT/HCPCS: 80053; 80061; 82306; 82607; 82728; 82746; 83036; 83540; 84439; 84443; 85025; 85045; 86704; 86706; 86780; 86803; 87340; 87491; 87591

== ENCOUNTER 2024-12-14 15:17 | Outpatient (AMB) | payer OTHER, SELFPAY ==
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
== END 2024-12-14 15:45 ==
LOC: HO.HMCH 15:17
PROVIDERS: PCP Internal Medicine; Visit Provider Internal Medicine
DX: U07.1 COVID-19 (principal)

== ENCOUNTER 2025-01-02 09:08 | Emergency (ER) | payer OTHER, SELFPAY ==
--- NOTE | ~2025-01-02 | XR_ITS ---
EXAMINATION: XR SOFT TISSUE NECK CLINICAL INDICATION: concern for retained glass COMPARISON: None available. TECHNIQUE: 2 views of the soft tissue neck were obtained. FINDINGS: Soft tissue films of the neck demonstrate a normal larynx, pharynx and upper trachea. Prevertebral soft tissues normal. Airway is maintained. Epiglottis appears normal. No soft tissue swelling or opaque foreign body is demonstrated. Lung apices appear clear. No bony abnormalities. XR/XR soft tissue neck IMPRESSION: Normal exam. No radiopaque foreign body evident. Electronically signed by: Colten Lopez MD 01/02/2025 10:08 AM EDT
[2025-01-02 09:19] VITALS: BP 127/75; PULSE 101; RESP 18; TEMP 36.2; O2SAT 99; BMI 24.9
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
--- NOTE | 2025-01-02 09:54 | PC.NURSE ---
Pt was at work this am and ate a breakfast sandwich. Reports feeling like a piece of glass is stuck in her rt tonsil. States something sharp was in the food. Airway intact. Managing secretions without difficulty. NAD.
[2025-01-02] MEDS: Lidocaine HCl Viscous 2 % 15 ML SOLUTION MUCOUS MEM (10:09)
[2025-01-02 10:28] LABS: IDNOW Serial# 152EDE1D; Strep A Nucleic Acid Negative (Negative)
[2025-01-02 10:42] LABS: IDNOW Serial# 08D9AD1C; Influenza B2 Negative (Negative)
[2025-01-02 10:44] LABS: COVID-19 Test Negative (Negative); IDNOW Serial# 6674DD1D
[2025-01-02 10:59] VITALS: BP 115/72; PULSE 85; RESP 18; TEMP 36.6; O2SAT 99
== END 2025-01-02 11:09 | disposition home or self-care (01) ==
PROVIDERS: Physician Assistant Medical; Emergency Provider Emergency Medicine; PCP Internal Medicine
DX: J02.9 Acute pharyngitis, unspecified (principal)
CPT/HCPCS: 70360; 87502; 87635; 87651; 96372; 99284; J1885

== ENCOUNTER → 2025-01-02 09:24 | Outpatient (BNV) | payer OTHER, SELFPAY | PROVIDERS: Emergency Provider Emergency Medicine; PCP Internal Medicine; Visit Provider Radiology Diagnostic Radiology | DX: R13.10 Dysphagia, unspecified (principal) | CPT/HCPCS: 70360 ==